=== PATIENT | male | born 1950 | race Caucasian/White ===

== ENCOUNTER 2016-10-28 08:25 | Outpatient (CLI) | payer OTHER, BC | END 2016-10-28 08:26 | disposition home or self-care (01) | DX: Z79.01 Long term (current) use of anticoagulants (principal); I26.99 Other pulmonary embolism without acute cor pulmonale ==

== ENCOUNTER 2016-11-04 09:45 | Outpatient (CLI) | payer BC, OTHER | END 2016-11-04 09:46 | disposition home or self-care (01) | DX: Z79.01 Long term (current) use of anticoagulants (principal); I26.99 Other pulmonary embolism without acute cor pulmonale ==

== ENCOUNTER 2016-11-11 07:24 | Outpatient (CLI) | payer OTHER | END 2016-11-11 07:25 | disposition home or self-care (01) | DX: Z79.01 Long term (current) use of anticoagulants (principal); I26.99 Other pulmonary embolism without acute cor pulmonale ==

== ENCOUNTER 2016-11-18 08:54 | Outpatient (CLI) | payer OTHER, BC | END 2016-11-18 08:55 | disposition home or self-care (01) | DX: I26.99 Other pulmonary embolism without acute cor pulmonale (principal); Z79.01 Long term (current) use of anticoagulants ==

== ENCOUNTER 2016-11-25 12:55 | Outpatient (CLI) | payer OTHER, BC | END 2016-11-25 12:56 | disposition home or self-care (01) | DX: Z79.01 Long term (current) use of anticoagulants (principal); I26.99 Other pulmonary embolism without acute cor pulmonale ==

== ENCOUNTER 2016-12-09 11:20 | Outpatient (CLI) | payer BC, OTHER | END 2016-12-09 11:21 | disposition home or self-care (01) | DX: Z79.01 Long term (current) use of anticoagulants (principal); I26.99 Other pulmonary embolism without acute cor pulmonale ==

== ENCOUNTER 2016-12-23 10:59 | Outpatient (CLI) | payer OTHER | END 2016-12-23 11:00 | disposition home or self-care (01) | DX: I26.99 Other pulmonary embolism without acute cor pulmonale (principal); Z79.01 Long term (current) use of anticoagulants ==

== ENCOUNTER 2017-01-16 13:05 | Outpatient (CLI) | payer OTHER | END 2017-01-16 13:06 | disposition home or self-care (01) | DX: I26.99 Other pulmonary embolism without acute cor pulmonale (principal); Z79.01 Long term (current) use of anticoagulants ==

== ENCOUNTER 2017-03-09 10:45 | Outpatient (CLI) | payer OTHER | END 2017-03-09 10:46 | disposition home or self-care (01) | DX: I26.99 Other pulmonary embolism without acute cor pulmonale (principal); Z79.01 Long term (current) use of anticoagulants ==

== ENCOUNTER 2017-04-06 08:41 | Outpatient (CLI) | payer OTHER | END 2017-04-06 08:42 | disposition home or self-care (01) | LOC: LAB.F 08:41 | PROVIDERS: ATTEND Internal Medicine | DX: I26.99 Other pulmonary embolism without acute cor pulmonale (principal); Z79.01 Long term (current) use of anticoagulants | CPT/HCPCS: 85610 ==

== ENCOUNTER 2017-05-04 07:46 | Outpatient (CLI) | payer OTHER | END 2017-05-04 07:47 | disposition home or self-care (01) | LOC: LAB.F 07:46 | PROVIDERS: ATTEND Internal Medicine | DX: Z79.01 Long term (current) use of anticoagulants (principal) | CPT/HCPCS: 85610 ==

== ENCOUNTER 2017-05-29 09:38 | Outpatient (CLI) | payer MEDICARE, OTHER | END 2017-05-29 09:39 | disposition home or self-care (01) | LOC: LAB.F 09:38 | PROVIDERS: ATTEND Internal Medicine | DX: I26.99 Other pulmonary embolism without acute cor pulmonale (principal); Z79.01 Long term (current) use of anticoagulants | CPT/HCPCS: 85610 ==

== ENCOUNTER 2017-06-24 08:38 | Outpatient (CLI) | payer MEDICARE, OTHER | END 2017-06-24 08:39 | disposition home or self-care (01) | LOC: LAB.F 08:38 | PROVIDERS: ATTEND Internal Medicine | DX: I25.2 Old myocardial infarction (principal); I26.99 Other pulmonary embolism without acute cor pulmonale; Z79.01 Long term (current) use of anticoagulants | CPT/HCPCS: 36415; 85379; 85610 ==

== ENCOUNTER 2017-07-08 07:38 | Outpatient (CLI) | payer MEDICARE, OTHER | END 2017-07-08 07:39 | disposition home or self-care (01) | LOC: LAB.F 07:38 | PROVIDERS: ATTEND Internal Medicine | DX: I26.99 Other pulmonary embolism without acute cor pulmonale (principal); Z79.01 Long term (current) use of anticoagulants | CPT/HCPCS: 85610 ==

== ENCOUNTER 2017-07-28 08:19 | Outpatient (CLI) | payer MEDICARE, OTHER | END 2017-07-28 08:20 | disposition home or self-care (01) | LOC: LAB.F 08:19 | PROVIDERS: ATTEND Internal Medicine | DX: I26.99 Other pulmonary embolism without acute cor pulmonale (principal); Z79.01 Long term (current) use of anticoagulants | CPT/HCPCS: 85610 ==

== ENCOUNTER 2017-08-11 15:14 | Outpatient (CLI) | payer MEDICARE, OTHER | END 2017-08-11 15:15 | disposition home or self-care (01) | LOC: LAB.F 15:14 | PROVIDERS: ATTEND Internal Medicine | DX: I26.99 Other pulmonary embolism without acute cor pulmonale (principal); Z79.01 Long term (current) use of anticoagulants | CPT/HCPCS: 85610 ==

== ENCOUNTER 2017-09-22 14:27 | Outpatient (CLI) | payer MEDICARE, OTHER ==
[2017-09-22 17:47] LABS: BASOPHILS % (AUTO) 0.5 %; EOSINOPHILS # (AUTO) 0.3 10^3/uL (0.0-0.7); EOSINOPHILS % (AUTO) 4.4 %; HCT - HEMATOCRIT 42.6 % (42.0-52.0); HGB - HEMOGLOBIN 14.4 g/dL (14.0-18.0); LYMPHOCYTES # (AUTO) 1.8 10^3/uL (1.5-3.5); LYMPHOCYTES % (AUTO) 24.7 %; MEAN CORPUSCULAR HEMOGLOBIN 32.2 pg (27.0-31.0); MEAN CORPUSCULAR HGB CONC 33.7 g/dL (32.0-36.0); MEAN CORPUSCULAR VOLUME 95.4 fL (80.0-94.0); MONOCYTES # (AUTO) 0.6 10^3/uL (0.0-1.0); MONOCYTES % (AUTO) 7.6 %; NEUTROPHILS # (AUTO) 4.6 10^3/uL (1.5-6.6); NEUTROPHILS % (AUTO) 62.8 %; NUCLEATED RED BLOOD CELLS AUTO 0.1 /100WBC; RED BLOOD COUNT 4.46 10^6/uL (4.70-6.10); RED CELL DISTRIBUTION WIDTH 12.8 % (12.0-15.0); UNCORRECTED WHITE BLOOD COUNT 7.4 x10^3/uL; WHITE BLOOD COUNT 7.4 x10^3/uL (4.8-10.8)
[2017-09-22 18:50] LABS: ALBUMIN/GLOBULIN RATIO 1.3 (1.0-2.2)
[2017-09-22 19:00] LABS: BILIRUBIN,TOTAL 0.4 mg/dL (0.2-1.0); BUN - BLOOD UREA NITROGEN 20 mg/dL (6-20); CARBON DIOXIDE - CO2 24 mmol/L (21-32); CHLORIDE 108 mmol/L (101-111); CHOLESTEROL 113 mg/dL; GFR - MDRD 75 (>89); GLUCOSE 99 mg/dL (70-100); HDL CHOLESTEROL 38 mg/dL; LDL/HDL RATIO 0.8 (<3.6); POTASSIUM 4.3 mmol/L (3.5-5.0); SODIUM 140 mmol/L (135-145); TOTAL PROTEIN 6.7 g/dL (6.7-8.2); TRIGLYCERIDES 214 mg/dL; VLDL CHOLESTEROL 43 mg/dL
== END 2017-09-22 14:28 | disposition home or self-care (01) ==
LOC: LAB.F 14:27
PROVIDERS: ATTEND Internal Medicine
DX: I25.10 Atherosclerotic heart disease of native coronary artery without angina pectoris (principal); I26.99 Other pulmonary embolism without acute cor pulmonale; D69.6 Thrombocytopenia, unspecified; D68.9 Coagulation defect, unspecified
CPT/HCPCS: 36415; 80053; 80061; 85025

== ENCOUNTER 2017-11-05 14:31 | Outpatient (CLI) | payer MEDICARE, OTHER ==
[2017-11-05 17:50] LABS: CALCIUM 9.2 mg/dL (8.5-10.3)
== END 2017-11-05 14:32 | disposition home or self-care (01) ==
LOC: LAB.F 14:31
PROVIDERS: ATTEND Internal Medicine Cardiovascular Disease
DX: I10 Essential (primary) hypertension (principal)
CPT/HCPCS: 36415; 80048

== ENCOUNTER 2018-02-09 13:18 | Outpatient (CLI) | payer MEDICARE, OTHER ==
--- NOTE | 2018-02-09 15:28 | XRAY Report ---
TWO VIEW LUMBAR SPINE: 02/09/2018 CLINICAL INDICATION: Bilateral leg pain and weakness. FINDINGS: Frontal and lateral views of the lumbar spine demonstrate moderate degenerative facet arthropathy, with mild degenerative disk disease. There is no evidence of compression fracture or subluxation. The bowel gas pattern appears unremarkable. IMPRESSION: MODERATE FACET ARTHROPATHY, WITH MILD DEGENERATIVE DISK DISEASE. TD: 02/09/2018 15:27
== END 2018-02-09 13:19 | disposition home or self-care (01) ==
LOC: DI 13:18
PROVIDERS: ATTEND Internal Medicine
DX: M51.36 Other intervertebral disc degeneration, lumbar region (principal); M47.896 Other spondylosis, lumbar region
CPT/HCPCS: 72100

== ENCOUNTER 2020-07-18 07:21 | Outpatient (CLI) | payer MEDICARE, OTHER ==
[2020-07-18 15:41] LABS: ALBUMIN 4.2 g/dL (3.2-5.5); ALBUMIN/GLOBULIN RATIO 1.6 (1.0-2.2); ALKALINE PHOSPHATASE 55 IU/L (42-121); ALT ALANINE AMINOTRANSFERASE 24 IU/L (10-60); AST ASPARTATE AMINOTRANSFERASE 24 IU/L (10-42); BUN - BLOOD UREA NITROGEN 24 mg/dL (6-20); CALCIUM 9.1 mg/dL (8.5-10.3); CARBON DIOXIDE - CO2 27 mmol/L (21-32); CHLORIDE 101 mmol/L (101-111); CHOL/HDL RATIO 3.2 (<5.0); CHOLESTEROL 155 mg/dL; CREATININE 0.8 mg/dL (0.6-1.2); GLUCOSE 99 mg/dL (70-100); HDL CHOLESTEROL 49 mg/dL; LDL CHOLESTEROL,CALCULATED 80 mg/dL; LDL/HDL RATIO 1.6 (<3.6); SODIUM 137 mmol/L (135-145); TOTAL PROTEIN 6.8 g/dL (6.7-8.2); VLDL CHOLESTEROL 26 mg/dL
== END 2020-07-18 07:22 | disposition home or self-care (01) ==
LOC: LAB.S 07:21
PROVIDERS: ATTEND Internal Medicine Cardiovascular Disease
DX: E78.5 Hyperlipidemia, unspecified (principal); I25.10 Atherosclerotic heart disease of native coronary artery without angina pectoris
CPT/HCPCS: 36415; 80053; 80061; 81599; 82172; 83721

== ENCOUNTER 2021-06-05 07:06 | Outpatient (CLI) | payer MEDICARE, OTHER ==
[2021-06-05 16:44] LABS: ALBUMIN/GLOBULIN RATIO 1.5 (1.0-2.2); ALKALINE PHOSPHATASE 53 IU/L (42-121); ALT ALANINE AMINOTRANSFERASE 28 IU/L (10-60); AST ASPARTATE AMINOTRANSFERASE 28 IU/L (10-42); BILIRUBIN,TOTAL 1.1 mg/dL (0.2-1.0); BUN - BLOOD UREA NITROGEN 21 mg/dL (6-20); CARBON DIOXIDE - CO2 27 mmol/L (21-32); CHLORIDE 103 mmol/L (101-111); CHOL/HDL RATIO 3.6 (<5.0); CHOLESTEROL 162 mg/dL; CREATININE 0.8 mg/dL (0.6-1.2); GFR - MDRD 96 (>89); GLUCOSE 97 mg/dL (70-100); HDL CHOLESTEROL 45 mg/dL; LDL CHOLESTEROL,CALCULATED 92 mg/dL; POTASSIUM 4.3 mmol/L (3.5-5.0); SODIUM 138 mmol/L (135-145); TOTAL PROTEIN 6.6 g/dL (6.7-8.2); TRIGLYCERIDES 123 mg/dL; VLDL CHOLESTEROL 25 mg/dL
== END 2021-06-05 07:07 | disposition home or self-care (01) ==
LOC: LAB.S 07:06
PROVIDERS: ATTEND Nurse Practitioner Family
DX: I10 Essential (primary) hypertension (principal); E78.5 Hyperlipidemia, unspecified; I25.10 Atherosclerotic heart disease of native coronary artery without angina pectoris
CPT/HCPCS: 36415; 80053; 80061; 81599; 82172; 83721

== ENCOUNTER 2023-06-25 07:53 | Outpatient (CLI) | payer MEDICARE, OTHER ==
[2023-06-25] MEDS ORDERED: ALBUTEROL 1 PUFF INH STA (09:04)
== END 2023-06-25 07:54 | disposition home or self-care (01) ==
LOC: RT 07:53
PROVIDERS: ATTEND Internal Medicine
DX: R06.09 Other forms of dyspnea (principal); Z86.711 Personal history of pulmonary embolism
CPT/HCPCS: 94060; 94729

== ENCOUNTER 2023-07-22 14:00 | Outpatient (CLI) | payer MEDICARE, OTHER ==
--- NOTE | 2023-07-22 16:00 | XRAY Report ---
PROCEDURE: Ankle 3 View LT INDICATIONS: SPRAIN OF UNSPECIFIED LIGAMENT OF LT ANKLE TECHNIQUE: 3 views of the ankle were acquired. COMPARISON: None. FINDINGS: Bones: Mild degenerative changes of the ankle and midfoot. Calcaneal enthesopathy. No displaced fract ure or dislocation. Soft tissues: No suspicious calcifications. There is soft tissue swelling. IMPRESSION: Mild degenerative changes without acute radiographic abnormality. If there is high concern for furthe r derangement, consider MRI evaluation. Reviewed by: Will Reed MD on 07/22/2023 3:58 PM PDT Approved by: Will Reed MD on 07/22/2023 3:58 PM PDT Station ID: [id number]
== END 2023-07-22 14:01 | disposition home or self-care (01) ==
LOC: DI 14:00
PROVIDERS: ATTEND Physician Assistant
DX: S93.402A Sprain of unspecified ligament of left ankle, initial encounter (principal); M19.072 Primary osteoarthritis, left ankle and foot

== ENCOUNTER 2023-07-28 08:57 | Outpatient (CLI) | payer MEDICARE, OTHER ==
--- NOTE | 2023-07-28 12:39 | CT Report ---
PROCEDURE: CHEST WO INDICATIONS: DYSPNEA TECHNIQUE: Noncontrast 1mm axial images were acquired from the pulmonary apices to the posterior costophrenic an gles. Axial 5 mm soft tissue kernel reconstructions were performed as well as 8 mm axial MIP and cor onal and sagittal 5 mm reformations. For radiation dose reduction, the following was used: automate d exposure control, adjustment of mA and/or kV according to patient size. COMPARISON: Chest radiograph 05/29/2023. FINDINGS: Image quality: Excellent. Lungs and pleura: No consolidation. No pleural effusions. No pneumothorax. No suspicious pulmonary n odules which require follow up. Calcified granuloma of the posterior right lower lobe. Mediastinum: Heart size is normal. No pericardial effusion. No large vessel abnormality. No mediastin al adenopathy by size criteria. Marked coronary calcifications for age. Chest wall and lower neck: Thyroid is unremarkable. No axillary or supraclavicular adenopathy by size . Bones: No aggressive osseous abnormality. Upper Abdomen: Unremarkable. IMPRESSION: No findings to explain the patient's dyspnea. Reviewed by: Arpan Lopez on 07/28/2023 12:38 PM PDT Approved by: Arpan Lopez on 07/28/2023 12:38 PM PDT Station ID: [id number]
== END 2023-07-28 08:58 | disposition home or self-care (01) ==
LOC: DI 08:57
PROVIDERS: ATTEND Internal Medicine
DX: R94.2 Abnormal results of pulmonary function studies (principal); Z86.711 Personal history of pulmonary embolism; R06.09 Other forms of dyspnea

== ENCOUNTER 2023-07-31 13:43 | Outpatient (CLI) | payer MEDICARE, OTHER ==
[2023-07-31 20:25] LABS: ALBUMIN 4.2 g/dL (3.2-5.5); ALBUMIN/GLOBULIN RATIO 1.8 (1.0-2.2); BILIRUBIN,TOTAL 0.7 mg/dL (0.2-1.0); CALCIUM 9.4 mg/dL (8.5-10.3); CREATININE 1.1 mg/dL (0.6-1.3); POTASSIUM 3.9 mmol/L (3.5-4.5); TOTAL PROTEIN 6.6 g/dL (6.4-8.9)
== END 2023-07-31 13:44 | disposition home or self-care (01) ==
LOC: LAB.S 13:43
PROVIDERS: ATTEND Internal Medicine
DX: E86.0 Dehydration (principal); R94.2 Abnormal results of pulmonary function studies
CPT/HCPCS: 36415; 80053

== ENCOUNTER 2024-06-16 17:46 | Emergency (ER) | payer MEDICARE, OTHER ==
[2024-06-16 18:02] VITALS: BP 138/65; O2SAT 97
--- NOTE | 2024-06-16 18:42 | Ultrasound Report ---
PROCEDURE: Duplex Ext Veins Right INDICATIONS: leg pain TECHNIQUE: Real-time imaging, as well as color and pulse Doppler interrogation, were performed of the lower extr emity deep veins from the inguinal ligament to the popliteal fossa. Attempted visualization of the ca lf veins was performed. COMPARISON: None. FINDINGS: The deep veins are normally compressible, and free of intraluminal thrombus. Color and pu lse Doppler demonstrate normal phasic intraluminal flow. There is normal augmentation response to di stal compression maneuver. Thrombus is seen within a short segment of the varicose vein at the medial mid to distal calf. IMPRESSION: 1.No deep venous thrombosis of the visualized lower extremity. 2.Superficial thrombophlebitis involving a varicose vein at the medial calf. Concordant preliminary findings were conveyed to the ordering provider by the ingredient specialist at the time of the exam. Reviewed by: Shai Mathias MD on 06/16/2024 6:41 PM PDT Approved by: Shai Mathias MD on 06/16/2024 6:41 PM PDT Station ID: [id number]
--- NOTE | 2024-06-16 18:46 | ED Physician Documentation ---
PD HPI LOWER EXT INJURY - Stated complaint Stated Complaint: RT LEG SWOLLEN/RED - Chief complaint Chief Complaint: Ext Problem - Additional information Additional information: 74-year-old male with history of DVTs and PEs and has had multiple vascular surgeries with vascular surgeon on his right lower extremity presents emergency department for right lower extremity erythema, pain/tenderness, swelling. He denies any calf pain pain is mostly to the anterior portion of his gonzalez and started noticing some discoloration, purple color to the anterior gonzalez. No shortness of breath or chest pain. He is not on any blood thinners as he was to after his last surgery couple years ago with vascular surgeon that he did not need to continue to take anticoagulants. PD PAST MEDICAL HISTORY - Past Medical History Past Medical History: Yes Cardiovascular: Hypertension, Pulmonary embolism, [place], Other Respiratory: None Neuro: None Endocrine/Autoimmune: None GI: Colon polyps : None HEENT: Other Psych: None Musculoskeletal: None Derm: Other - Past Surgical History Past Surgical History: Yes General: Colonoscopy - Present Medications Home Medications: Ambulatory Orders Medication Instructions Recorded Confirmed Cholecalciferol (Vitamin D3) 1,000 units PO DAILY 12/09/16 12/09/16 [Vitamin D3] Losartan [Cozaar] 50 mg PO BID 12/09/16 12/09/16 Pravastatin [Pravachol] 40 mg PO QPM 12/09/16 12/09/16 Warfarin [Coumadin] 2.5 mg PO QPM 12/09/16 12/09/16 - Allergies Allergies/Adverse Reactions: Allergies Allergy/AdvReac Type Severity Reaction Status Date / Time clopidogrel [From Plavix] AdvReac Hives Verified 06/16/24 17:57 rivaroxaban [From Xarelto] AdvReac Hives Verified 06/16/24 17:57 - Social History Does the pt smoke?: No Smoking Status: Never smoker Does the pt drink ETOH?: Yes Does the pt have substance abuse?: No - Immunizations Immunizations are current?: Yes - POLST Patient has POLST: No PD ED PE NORMAL - Vitals Vital signs reviewed: Yes - General General: Alert and oriented X 3, No acute distress, Well developed/nourished - HEENT HEENT: Atraumatic, PERRL - Cardiac Cardiac: RRR - Respiratory Respiratory: No respiratory distress, Clear bilaterally - Abdomen Abdomen: Normal bowel sounds, Soft, Non tender, No organomegaly - Derm Derm: Other (mild erythema to anterior gonzalez region, distal to knee) - Extremities Extremities: Other (LLE swelling, no calf pain or tenderness) - Psych Psych: Normal mood Results - Vitals Vitals: Vital Signs - 24 hr 06/16/24 17:49 Temperature 36.4 C L Heart Rate 56 L Respiratory 15 Rate Blood Pressure 138/65 H O2 Saturation 97 Oxygen O2 Source Room air - Rads (name of study) Left lower extremity venous duplex Relevant Findings:: Final report received, EMP independent interpretation of test, Other (No deep vein thrombosis, superficial thrombophlebitis involving the varicose vein of the medial calf.) PD Medical Decision Making - ED course ED course: 74-year-old male presents emergency department for left lower extremity pain and swelling. Venous duplex was complete and did rule out a venous duplex. I did r eveal a superficial thrombophlebitis involving a varicose vein at the medial calf. Patient was told to follow-up with his vascular surgeon outpatient for further evaluation of this he was told to apply LOUISA hose keep his leg elevated and alternate between heat and ice for pain discomfort. Return precautions given no shortness of breath no chest pain make me less concerned or suspicious for possible pulmonary embolism. All questions answered patient is safe for discharge at this time. Departure - Departure Disposition: 01 Home, Self Care Clinical Impression: Acute superficial venous thrombosis of right lower extremity Instructions: ED Phlebitis Superficial Comments: Thank you addresses with your care. Below is the radiology read for your venous ultrasound. Please follow-up with your primary care provider as well as your Vascular surgeon for follow-up and further evaluation. Keep your leg elevated above your heart to help with swelling you can apply heat and ice packs for pain and discomfort come back and if it starts to get any worse or you start to develop any chest pain or shortness of breath. PT NAME: CUAUHTEMOC SPRING MR#: [id number] REG ER/ED AGE: 74 CI DT/TM: 06/16/24 PCP: Mindi Mcdonnell MD : 1950 ATT: SEX: M ORD: Catarinojosee blake MD EXAM: [id number] US/VENR ([id number]) PROCEDURE: Duplex Ext Veins Right INDICATIONS: leg pain TECHNIQUE: Real-time imaging, as well as color and pulse Doppler interrogation, were performed of the lower extremity deep veins from the inguinal ligament to the popliteal fossa. Attempted visualization of the calf veins was performed. COMPARISON: None. FINDINGS: The deep veins are normally compressible, and free of intraluminal thrombus. Color and pulse Doppler demonstrate normal phasic intraluminal flow. There is normal augmentation response to distal compression maneuver. Thrombus is seen within a short segment of the varicose vein at the medial mid to distal calf. IMPRESSION: 1.No deep venous thrombosis of the visualized lower extremity. 2.Superficial thrombophlebitis involving a varicose vein at the medial calf. Concordant preliminary findings were conveyed to the ordering provider by the hadoop architect at the time of the exam. Reviewed by: Shai Mathias MD on 06/16/2024 6:41 PM PDT Approved by: Shai Mahtias MD on 06/16/2024 6:41 PM PDT Station ID: [id number] Report Electronically Signed by Shai Mathias MD 06/16/24 1840 06/16/24 184 cc: Catarino Georges MD ED; Mindi Mcdonnell MD Forms: PCP List Discharge Date/Time: 06/16/24 19:33
== END 2024-06-16 19:33 | disposition home or self-care (01) ==
LOC: ED 17:46
DX: I80.01 Phlebitis and thrombophlebitis of superficial vessels of right lower extremity (principal)
CPT/HCPCS: 99283; 99284

== ENCOUNTER 2024-06-23 11:26 | Outpatient (CLI) | payer MEDICARE, OTHER ==
--- NOTE | 2024-06-23 12:19 | Ultrasound Report ---
PROCEDURE: Duplex Ext Veins Right INDICATIONS: HIST OF DVT TECHNIQUE: Real-time imaging, as well as color and pulse Doppler interrogation, were performed of the lower extr emity deep veins from the inguinal ligament to the popliteal fossa. Attempted visualization of the ca lf veins was performed. COMPARISON: Right lower extremity Doppler duplex ultrasound 06/16/2024 FINDINGS: The deep veins are normally compressible, and free of intraluminal thrombus. Color and pu lse Doppler demonstrate normal phasic intraluminal flow. There is normal augmentation response to di stal compression maneuver. Thrombosed superficial varicose vein in the right mid calf. IMPRESSION: No deep venous thrombosis of the visualized lower extremity. Superficial thrombophlebitis involving varicose vein in the right mid calf stable compared to prior e xam.. Reviewed by: Berna Mendieta MD, PhD on 06/23/2024 12:18 PM PDT Approved by: Berna Mendieta MD, PhD on 06/23/2024 12:18 PM PDT Station ID: [id number]
== END 2024-06-23 11:27 | disposition home or self-care (01) ==
LOC: DI 11:26
PROVIDERS: ATTEND Internal Medicine
DX: I80.251 Phlebitis and thrombophlebitis of right calf muscular vein (principal); Z86.718 Personal history of other venous thrombosis and embolism
CPT/HCPCS: 36415; 81241; 85303; 85379

== ENCOUNTER 2024-06-23 12:13 | Outpatient (CLI) | payer MEDICARE, OTHER | END 2024-06-23 12:14 | disposition home or self-care (01) | LOC: LAB 12:13 | PROVIDERS: ATTEND Internal Medicine | DX: I82.461 Acute embolism and thrombosis of right calf muscular vein (principal) | CPT/HCPCS: 36415; 81241; 85303; 85379 ==

== ENCOUNTER 2024-06-30 08:57 | Outpatient (CLI) | payer MEDICARE, OTHER ==
[2024-06-30] MEDS ORDERED: iohexoL-300 100 ML VIAL ONE (09:07)
[2024-06-30] MEDS: iohexoL-300 100 ML VIAL IVP ONE (11:51)
--- NOTE | 2024-06-30 19:12 | CT Report ---
PROCEDURE: Angio Chest INDICATIONS: HIST OF PE CONTRAST: Omni 300 80ml TECHNIQUE: After the administration of intravenous contrast, 2 mm axial images were acquired from the pulmonary apices to the posterior costophrenic angles during the arterial phase. In addition, 1 mm lung kernel and 5 mm soft tissue kernel reconstructions were performed. 3-dimensional coronal oblique maximum int ensity projection (MIP) reformats, 8 mm axial MIP, and 5 mm coronal and sagittal MPR reformats were t hen performed through the thorax. For radiation dose reduction, the following was used: automated exp osure control, adjustment of mA and/or kV according to patient size. COMPARISON: CT chest on July 28, 2023. FINDINGS: Image quality: Excellent. Large vessels: Enhancement of the pulmonary arteries adequate. No filling defect in the pulmonary vas culature to the level of the proximal subsegmental pulmonary arteries. Main pulmonary artery is medardo l in caliber. No thoracic aortic aneurysm. Moderate calcification of the thoracic aorta. Stable right lower lobe subcentimeter calcified granuloma. Lungs and pleura: No consolidation. No pleural effusions. No pneumothorax. No suspicious pulmonary n odules which require follow up. Left lower lobe linear atelectasis/scar. Mediastinum: Heart size is normal. No pericardial effusion. No large vessel abnormality. No mediastin al adenopathy by size criteria. Marked three-vessel coronary calcification. Chest wall and lower neck: Thyroid is unremarkable. No axillary or supraclavicular adenopathy by size . Bones: No aggressive osseous abnormality. No acute fractures. Xnis-[id number] multilevel degenerativ e changes of the spine. Upper Abdomen: Right posterior interpolar anechoic simple cyst. Similar appearance of bilateral perin ephric fat stranding.. IMPRESSION: 1.No acute pulmonary embolism to the level of the proximal subsegmental pulmonary arteries. Main pulm onary artery is normal in caliber. 2.No acute cardiopulmonary process. 3.Marked three-vessel coronary calcification. Consider Cardiology consultation. Reviewed by: Missael Hutton MD on 06/30/2024 6:10 PM AKDT Approved by: Missael Hutton MD on 06/30/2024 6:10 PM AKDT Station ID: [id number]
== END 2024-06-30 08:58 | disposition home or self-care (01) ==
LOC: LAB 08:57
PROVIDERS: ATTEND Internal Medicine
DX: I25.10 Atherosclerotic heart disease of native coronary artery without angina pectoris (principal); Z86.711 Personal history of pulmonary embolism
CPT/HCPCS: 36415; 71275; 82565; Q9967

== ENCOUNTER 2024-07-07 08:00 | Outpatient (CLI) | payer MEDICARE, OTHER | END 2024-07-07 23:59 | disposition home or self-care (01) | LOC: LAB.F 08:00 | PROVIDERS: ATTEND Internal Medicine | DX: I82.461 Acute embolism and thrombosis of right calf muscular vein (principal); I82.491 Acute embolism and thrombosis of other specified deep vein of right lower extremity; Z86.711 Personal history of pulmonary embolism; Z86.718 Personal history of other venous thrombosis and embolism ==

== ENCOUNTER 2024-07-21 08:00 | Outpatient (CLI) | payer MEDICARE, OTHER | END 2024-07-21 23:59 | disposition home or self-care (01) | LOC: LAB.F 08:00 | PROVIDERS: ATTEND Internal Medicine | DX: I82.461 Acute embolism and thrombosis of right calf muscular vein (principal); Z86.718 Personal history of other venous thrombosis and embolism; Z86.711 Personal history of pulmonary embolism; Z79.01 Long term (current) use of anticoagulants ==